=== PATIENT | female | born 1925 | race Caucasian/White ===

== ENCOUNTER 2016-10-03 14:44 | Inpatient (IN) | payer OTHER, MEDICARE ==
--- NOTE | 2016-10-03 14:48 | EDPHY ---
HPI/HX/ROS/PE/MDM Narrative: CHIEF COMPLAINT: Dyspnea HPI: The patient is an 89 y/o female arriving via EMS complaining of shortness of breath for the last few hours. She began feeling poorly yesterday with heavy , mildly productive cough. She was evaluated at urgent care yesterday afternoon for the same symptoms and was discharged with azithromycin. She feels worse today and has difficulty breathing even on 4LPM O2 at home. EMS reports she was hypoxemic at 81% on 4LPM O2, but improved to normal saturation after administration of a duo nebulizer treatment on 8LPM O2. She denies chest pain, fever, abdominal pain, vomiting, or diarrhea. She reports she requires home O2 due to PEs 10 years ago. REVIEW OF SYSTEMS: Aside from elements discussed in the HPI, a comprehensive 10-point review of systems was reviewed and is negative. PMH: PE 10 years ago requiring home O2 at 4LPM - aspirin, "hole in heart" SOCIAL HISTORY: Lives in private residence. DNR. Retired. PHYSICAL EXAM: General:Patient is alert, in no acute distress. ENT:Eyes are normal to inspection. ENT inspection normal. Neck: Normal inspection. Full range of motion. Respiratory:No respiratory distress. Inspiratory and expiratory wheezes with diffuse rhonchi. Cardiovascular: Regular rate and rhythm. Strong peripheral pulses. Normal cap refill. Abdomen:The abdomen is nontender to palpation. There are no peritoneal signs. Back: Normal to inspection. No tenderness to palpation. Skin: Normal color. No rash. Warm and dry. Extremities: Full range of motion. 2+ pedal edema, slightly worse on left. Neuro: Oriented x3. Normal motor function. Normal sensory function. ED Course: IV established by EMS. Labs drawn including CBC, CHEM, d-dimer, troponin, BNP. Chest x-ray ordered. I viewed the images myself on the PACS system. Chest x-ray shows bronchitis and COPD with stable cardiomegaly per Dr. Hodge, radiologist. D-dimer elevated at 1.52, mildly elevated troponin and BNP. Due to elevated creatinine at 2.0, patient cannot have a CTA of her chest to evaluate for PE. 1557: Spoke with hospitalist service. Dr. Rivera accepts admission for hypoxemia, dyspnea, elevated troponin, elevated d-dimer, elevated BNP. MDM: This is a complex medical patient presents with numerous potential etiologies for her dyspnea and hypoxia, including but not limited to pulmonary embolus, CHF exacerbation, COPD exacerbation, pneumonia. Her creatinine is elevated, making CT angio contraindicated at this time. Her chest x-ray looks more significant for volume overload and this is confirmed by elevated BNP and troponin. He the patient is afebrile so I do not think that antibiotics are indicated, particularly since the patient is already on azithromycin. Patient requires admission the hospital for observation and further workup. - Data Points Imaging Results: Imaging Impressions Chest X-Ray 10/03/16 14:58 Impression: 1. Probable mild bronchitis/COPD. 2. Stable cardiomegaly. 3. Additional findings as above. I viewed the images myself on the PACS system. Laboratory Results: Laboratory Results 10/03/16 15:03 10/03/16 15:03 10/03/16 10/03/16 10/03/16 15:03 15:03 15:03 WBC 9.07 10^3/uL 10^3/uL (3.80-9.50) RBC 3.50 10^6/uL L 10^6/uL (4.18-5.33) Hgb 11.2 g/dL L g/dL (12.6-16.3) Hct 37.3 % L % (38.0-47.0) MCV 106.6 fL H fL (81.5-99.8) MCH 32.0 pg pg (27.9-34.1) MCHC 30.0 g/dL L g/dL (32.4-36.7) RDW 16.3 % H % (11.5-15.2) Plt Count 231 10^3/uL 10^3/uL (150-400) MPV 9.9 fL fL (8.7-11.7) Neut % (Auto) Not Reported Lymph % (Auto) Not Reported [place] % (Auto) Not Reported Eos % (Auto) Not Reported Baso % (Auto) Not Reported Nucleat RBC Rel Count 0.4 % H % (0.0-0.2) Absolute Neuts (auto) Not Reported Absolute Lymphs (auto) Not Reported Absolute Monos (auto) Not Reported Absolute Eos (auto) Not Reported Absolute Basos (auto) Not Reported Absolute Nucleated RBC 0.04 10^3/uL H 10^3/uL (0-0.01) Immature Gran % Not Reported Seg Neutrophils % 82 % % Band Neutrophils % 4 % % Lymphocytes % 9 % % Monocytes % 4 % % Basophils % 1 % % Immature Gran # Not Reported Absolute Seg Neuts 7.44 10^/uL H 10^/uL (1.70-6.50) Absolute Band Neuts 0.36 10^3/uL 10^3/uL (0.00-0.70) Absolute Lymphocytes 0.82 10^3/uL L 10^3/uL (1.00-3.00) Absolute Monocytes 0.36 10^3/uL 10^3/uL (0.30-0.80) Absolute Basophils 0.09 10^3/uL 10^3/uL (0.02-0.10) Platelet Estimate ADEQUATE (ADEQ) Hypochromasia 3+ H Microcytic Cells 1+ H PT 12.2 SEC SEC (12.0-15.0) INR 0.91 (0.83-1.16) D-Dimer 1.52 ug/mLFEU H ug/mLFEU (0.00-0.50) Sodium 141 mEq/L mEq/L (134-144) Potassium 6.0 mEq/L H mEq/L (3.5-5.2) Chloride 105 mEq/L mEq/L (97-110) Carbon Dioxide 26 mEq/l mEq/l (22-31) Anion Gap 10 mEq/L mEq/L (8-16) BUN 32 mg/dL H mg/dL (7-23) Creatinine 2.0 mg/dL H mg/dL (0.6-1.0) Estimated GFR 23 Glucose 142 mg/dL H mg/dL (70-100) Calcium 8.6 mg/dL mg/dL (8.5-10.4) Troponin I 0.051 ng/mL H ng/mL (0-0.034) NT-Pro-B Natriuret Pep 5480 pg/mL H pg/mL (0-450) Specimen Hemolysis 132 General Initial Vital Signs: Initial Vital Signs Temperature (C) 37.1 C 10/03/16 14:58 Heart Rate 82 10/03/16 14:58 Respiratory Rate 24 H 10/03/16 14:58 Blood Pressure 188/86 H 10/03/16 14:58 O2 Sat (%) 56 L 10/03/16 14:58 O2 Delivery Mode Nasal Cannula O2 (L/minute) 6 Allergies/Adverse Reactions: MANAN Inhibitors [Manan Inhibitors] Allergy (Intermediate, Verified 12/13/14 12:16) Unknown nitrofurantoin [From Macrobid] Allergy (Unknown, Verified 12/13/14 12:16) Hives nitrofurantoin macrocrystalline [From Macrobid] Allergy (Unknown, Verified 12/13 12:16) Hives Sulfa (Sulfonamide Antibiotics) Allergy (Unknown, Verified 12/13/14 12:16) Hives allopurinol [Allopurinol] Allergy (Verified 12/13/14 12:16) Unknown amoxicillin [Amoxicillin] Allergy (Verified 12/13/14 12:16) Hives clindamycin [Clindamycin] Allergy (Verified 12/13/14 12:16) Unknown cortisone [Cortisone] Allergy (Verified 12/13/14 12:16) INCREASED TEMP iodine [Iodine] Allergy (Verified 12/13/14 12:16) Unknown Home Medications: Medication Instructions Recorded Aspirin [Aspirin 81mg (OTC)] 81 mg PO HS 08/18/12 Verapamil ER [Calan SR/ER 240MG 240 mg PO DAILY 08/18/12 (RX)] Azithromycin 250 mg PO DAILY 10/03/16 Ferrous Sulfate [Feosol] 325 mg PO DAILY 10/03/16 Guaifenesin/Codeine Phos [Codeine 5 - 20 ml PO Q6 PRN 10/03/16 10 mg-Guai 300 mg Liq] Herbals/Supplements -Info Only 1 ea PO DAILY 10/03/16 Probenecid [Probenecid 500mg (*)] 500 mg PO DAILY 10/03/16 Solifenacin Succinate [Vesicare] 10 mg PO HS 10/03/16 Departure - Departure Disposition: [facility] Acute Clinical Impression: Elevated troponin, Elevated d-dimer, Hypoxemia, Elevated brain natriuretic peptide (BNP) level Dyspnea Qualifiers: Dyspnea type: shortness of breath Qualified Code(s): R06.02 - Shortness of breath Condition: Fair Report Scribed for: Hector Gallegos Report Scribed by: Samantha Ramirez Date of Report: 10/03/16 Time of Report: 14:48 Physician Review and Approval Statement: Portions of this note were transcribed by an ED scribe. I personally performed the history, physical exam, and medical decision making; and confirm the accuracy of the information in the transcribed note.
[2016-10-03 15:13] LABS: ABSOLUTE NRBC COUNT 0.04 10^3/uL (0-0.01); ADD MORPH? NO; ATYPICAL LYMPHOCYTE FLAG 40 (0-99); FRAGMENT RBC FLAG 10 (0-99); HEMATOCRIT 37.3 % (38.0-47.0); HEMOGLOBIN 11.2 g/dL (12.6-16.3); LEFT SHIFT FLG 0 (0-99); LIPEMIA HEMOLYSIS FLAG 80 (0-99); MEAN CELL VOLUME 106.6 fL (81.5-99.8); MEAN PLATELET VOLUME 9.9 fL (8.7-11.7); NRBC-AUTO% 0.4 % (0.0-0.2); PLATELET CLUMPS FLAG 10 (0-99); PLATELET COUNT 231 10^3/uL (150-400); RED CELL DISTRIBUTION WIDTH 16.3 % (11.5-15.2)
[2016-10-03 15:15] LABS: ADD DIFF? YES; ADD SCAN? NO
[2016-10-03 15:24] LABS: INR 0.91 (0.83-1.16); PROTIME(PATIENT) 12.2 SEC (12.0-15.0)
[2016-10-03 15:37] LABS: ANION GAP 10 mEq/L (8-16); CALCIUM 8.6 mg/dL (8.5-10.4); CARBON DIOXIDE 26 mEq/l (22-31); CHLORIDE 105 mEq/L (97-110); GLOMERULAR FILTRATION RATE 23; GLUCOSE 142 mg/dL (70-100); SODIUM 141 mEq/L (134-144); SPECIMEN HEMOLYSIS 132
[2016-10-03 15:39] LABS: HYPOCHROMIA 3+; MICROCYTES 1+; PLATELET ESTIMATE ADEQUATE (ADEQ)
[2016-10-03 15:49] LABS: TROPONIN I 0.051 ng/mL (0-0.034)
[2016-10-03] MEDS ORDERED: ACETAMINOPHEN 325 MG TAB PO PRN (16:15)
[2016-10-03] MEDS ORDERED: ONDANSETRON 4 MG/2 ML VIAL IVP PRN (16:15)
[2016-10-03] MEDS ORDERED: ONDANSETRON DISINTEGRATING 4 MG TAB PO PRN (16:15)
[2016-10-03] MEDS ORDERED: PROMETHAZINE HCL 25 MG TAB PO PRN (16:15)
[2016-10-03] MEDS ORDERED: oxyCODONE IR 5 MG TAB PO PRN (16:15)
[2016-10-03] MEDS ORDERED: ALBUTEROL 3 ML DEYVIAL IH PRN (16:15)
[2016-10-03] MEDS ORDERED: hydrALAZINE 20 MG/ML VIAL IVP PRN (16:18)
[2016-10-03] MEDS ORDERED: SODIUM POLY SULF 15 GM/60 ML BOTTLE PO ONE (16:18)
[2016-10-03] MEDS ORDERED: FUROSEMIDE 20 MG/2 ML VIAL IVP ONE ×2 (16:53→20:30)
[2016-10-03] MEDS ORDERED: GUAIFENESIN PO PRN (17:49)
[2016-10-03] MEDS ORDERED: CODEINE PO PRN (17:49)
--- NOTE | 2016-10-03 19:04 | GHP ---
[f rep st] HISTORY AND PHYSICAL DATE OF ADMISSION: 10/03/2016 CHIEF COMPLAINT: Shortness of breath. HISTORY OF PRESENT ILLNESS: This is an 89-year-old female who has a past medical history that inclu flor chronic hypoxic respiratory failure on 4 L of oxygen at baseline in the setting of presumed COPD as well as prior PE and diastolic heart failure presenting with several days worth of wheeze and wo rsening shortness of breath. The patient was ultimately brought in by paramedics and was found to b e 81% on her usual 4 L of oxygen. She denies any fevers or chills. She denies any chest pain. She chronically has swelling in her legs and feels that this is at baseline without any change and no p ain in her legs bilaterally. She has a chronic cough but is not really getting up much sputum. She was seen at urgent care yesterday and started on a Z-Shaw as well as some nebulizers, but notes that she did not feel any better and for that reason, came to the ER today for further evaluation. PAST MEDICAL HISTORY: 1. Chronic hypoxic respiratory failure on 4 L of oxygen at baseline. 2. COPD. 3. History of PE, no longer on anticoagulation. 4. Pulmonary hypertension with suspected LILIANA/OHS. 5. Morbid obesity. 6. Diastolic heart failure with preserved ejection fraction. 7. Gout. 8. Chronic kidney disease with a baseline creatinine of around 2. FAMILY HISTORY: This was reviewed. Noncontributory. Parents are . SOCIAL HISTORY: The patient is and accompanied here by her . She is currently livin g independently. She is a nonsmoker and never did smoke. She denies alcohol or drug use. She has 2 children one of whom accompanies her here today. REVIEW OF SYSTEMS: 10-point review of systems obtained negative except as per HPI. MEDICATIONS: Include. 1. Verapamil. 2. VESIcare. 3. Probenecid. 4. Guaifenesin/codeine. 5. Iron supplement. 6. Azithromycin. 7. Aspirin. ALLERGIES: Are multiple and include JEWELS inhibitors, nitrofurantoin, sulfa, clindamycin. PHYSICAL EXAM: VITAL SIGNS: BP 172/79, heart rate 89, respiratory rate 16, O2 sats 93% on 6 L. Te mperature is 37.1. GENERAL APPEARANCE: This is an elderly female. She is awake, alert a nd in mild distress. HEENT: Eyes anicteric, sclerae are injected. Oropharynx is clear, mucous mem branes are moist. LUNGS: There is increased work of breathing and accessory muscle use appreciated, there are diffuse wheezes present throughout all lung augustin. CARDIOVASCULAR: Regular rate and rhy thm, difficult to appreciate whether not there is a murmur over her wheeze though I suspect a systol ic murmur is present especially at the right upper sternal border. ABDOMEN: Obese, soft, nontender . EXTREMITIES: 1 to 2+ pitting edema bilateral lower extremities. The calves are symmetrical and there is no muscular tenderness present. SKIN: Warm, dry, well perfused. NEURO/PSYCH: Oriented, a ppropriate, pleasant. LABORATORY DATA: Labs reviewed. Significant for white blood cell count of 9.07, hematocrit 37.3, M CV is 106.6. D-dimer is elevated at 1.5. Potassium is 6.0. BUN of 32 with a creatinine at 2.0, gl ucose of 142, proBNP of 5480, troponin 0.051. Chest x-ray: This was personally reviewed and interpreted, shows no clear evidence of pneumonia. T here is evidence of underlying bronchitis/COPD and stable cardiomegaly. ASSESSMENT AND PLAN: This is an 89-year-old female with past medical history of chronic hypoxic res piratory failure secondary to chronic obstructive pulmonary disease, diastolic heart failure and bo or PE presenting with acute on chronic hypoxic respiratory failure. 1. Acute on chronic hypoxic respiratory failure. Suspect this is largely secondary to chronic obst ructive pulmonary disease exacerbation given exam with diffuse wheezes and reduced air movement. An other consideration would be for pulmonary embolus especially given prior history of pulmonary embol us and elevated D-dimer, but at this time, given her chronic kidney disease, I feel that a CT angiog lizette is too high risk and will defer that for the time being. She does have evidence of likely decom pensated diastolic heart failure also contributing. 2. Chronic obstructive pulmonary disease with acute exacerbation. As per above, she does have diff use wheeze and reduced air movement throughout her lungs consistent with chronic obstructive pulmona ry disease exacerbation, possible underlying bronchopneumonia triggering this acute exacerbation. S he was not improving on azithromycin at home. Will transition to Levaquin given lack of clear typic al pneumonia appearance on exam. We will check an influenza test. Will provide scheduled DuoNeb an d p.r.n. albuterol, Mucomyst and IV steroids. 3. Acute diastolic heart failure. Patient with significant bilateral lower extremity edema and BNP elevated higher than it has been in the past. We will give 1 dose of IV Lasix, monitor inputs and nose and daily weights. Given her chronic kidney disease, I will not schedule Lasix at this point, but will reorder so long as her response is reasonable. We will also obtain an echocardiogram in e morning for evaluation for any change. 4. Hyperkalemia with underlying chronic kidney disease as likely etiology. Will obtain EKG to rule out any changes related to her elevated potassium and plan to give Kayexalate so long as her EKG is unremarkable. 5. Elevated troponin in the absence of chest pain and with acute respiratory issues as per above. We will monitor on telemetry. Will trend troponins. Again, echocardiogram for the morning. 6. History of pulmonary embolus, no longer on anticoagulation. Cannot obtain CT angiogram given he r chronic kidney disease, but will ask for ultrasound of bilateral extremities and echocardiogram in the morning. She has had V/Q scans in the past, which have been indeterminate and suspect that thi s would be low yield to repeat. 7. Pulmonary hypertension. This is with underlying obstructive sleep apnea for which she is on CPA P and suspected obesity hypoventilation syndrome given body habitus. We will continue CPAP, will co ntinue supplemental oxygen. Will repeat echocardiogram as per above. 8. Code status. This was reviewed with the patient and her family. She would like to be a DNR. 9. Disposition. Inpatient status. Expect she will need greater than 48 hours stay for evaluation and management of above. 10. Patient is new to my care. Old records reviewed, summarized as per HPI and past medical histor y. Care plan reviewed with ER physician, including plans for breathing treatments. Further history obtained from patient's family present at bedside. /[id number]/MODL
[2016-10-03] MEDS: ACETYLCYSTEINE 10% 30 ML VIAL IH SCH (19:25)
[2016-10-03] MEDS: IPRATROPIUM/ALBUTEROL 3 ML DEYVIAL IH SCH (19:26)
[2016-10-03] MEDS: methylPREDNISolone SOD SUCC 125 MG/2 ML VIAL IVP SCH ×2 (19:31→23:27)
[2016-10-03] MEDS ORDERED: NON-FORMULARY NEW DRUG (Solifenacin Succinate [Vesicare] 10 MG) PO SCH (21:00)
--- NOTE | 2016-10-03 21:37 | CPEKG ---
Heart Rate: 82 RR Interval: 732 P-R Interval: 184 QRSD Interval: 102 QT Interval: 396 QTC Interval: 463 P [place]: 79 QRS [place]: 75 T Wave [place]: 57 EKG Severity - ABNORMAL ECG - EKG Impression: SINUS RHYTHM EKG Impression: LATERAL INFARCT, AGE INDETERMINATE Electronically Signed By: Shawna Soria 03-Oct-2016 22:08:37
[2016-10-03 21:39] LABS: BASE EXCESS -3.8 mEq/L (-2.5-2.5); BICARBONATE 25 mEq/L (22-26); MEASURED OXYGEN SATURATION 95 % (92-95); PO2 90 mmHg (65-75); TCO2 28 mEq/L (23-27)
[2016-10-03 21:44] LABS: PCO2 73 mmHg (34-38)
[2016-10-03] MEDS: ASPIRIN 81 MG CHEWABLE TAB PO SCH (21:53)
[2016-10-03] MEDS: SOLIFENACIN SUCCINATE 5 MG TAB PO SCH (21:54)
[2016-10-03] MEDS ORDERED: HEPARIN 5,000 UNIT/0.5 ML SYR SC SCH (22:00)
--- NOTE | 2016-10-03 22:00 | SOAPPROG ---
SOAP Progress Note Assessment/Plan: F/u: called by nursing to come evaluate patient with worsening respiratory status--now on 10L face mask, increased wob. ABG drawn with PCO2 > 70, pH 7.17, and patient in moderate distress. Has had lasix, nebs, steroids. Trop increased as well, ECG personally reviewed and shows e/o old lateral infarct but no acute findings. Discussed with patient and her , given worsening respiratory status and CO2 level, will get repeat cxr, transfer to step down for bipap. Patient is DNR, and was clear that she would not want intubation. >45 minutes in critical care time spent with this Objective: Vital Signs Temp Pulse Resp BP Pulse Ox 37.3 C 84 25 H 175/72 H 92 10/03/16 20:20 10/03/16 21:27 10/03/16 20:20 10/03/16 20:20 10/03/16 21:28 10/02/16 10/03/16 10/04/16 05:59 05:59 05:59 Output Total 100 Balance -100 PT 12.2 SEC (12.0-15.0) 10/03/16 15:03 INR 0.91 (0.83-1.16) 10/03/16 15:03 ICD10 Worksheet Patient Problems: Problems Problem Status Onset Chronic obstructive lung disease Active Dyspnea Acute Elevated troponin Acute Elevated d-dimer Acute Hypoxemia Acute Elevated brain natriuretic peptide (BNP) level Acute
[2016-10-03] MEDS ORDERED: HEPARIN 10,000 UNIT/10 ML MDV IVP ONE (22:09)
[2016-10-03] MEDS ORDERED: HEPARIN 10,000 UNIT/10 ML MDV IVP PRN (22:09)
[2016-10-03] MEDS ORDERED: HEPARIN/DEXTROSE 500 ML IV SCH (22:30)
[2016-10-03 23:33] LABS: INR 0.96 (0.83-1.16); PROTIME(PATIENT) 12.7 SEC (12.0-15.0)
[2016-10-03 23:34] LABS: APTT 29.3 SEC (23.0-38.0)
[2016-10-03 23:35] LABS: ABSOLUTE IMMATURE GRANULOCYTES 0.18 10^3/uL (0.00-0.10); ABSOLUTE NRBC COUNT 0.04 10^3/uL (0-0.01); ADD DIFF? NO; ADD MORPH? NO; ADD SCAN? NO; ATYPICAL LYMPHOCYTE FLAG 30 (0-99); FRAGMENT RBC FLAG 10 (0-99); HEMATOCRIT 34.9 % (38.0-47.0); HEMOGLOBIN 10.4 g/dL (12.6-16.3); LEFT SHIFT FLG 10 (0-99); LIPEMIA HEMOLYSIS FLAG 70 (0-99); MEAN CELL HEMOGLOBIN CONCENTR. 29.8 g/dL (32.4-36.7); MEAN CELL VOLUME 107.4 fL (81.5-99.8); MEAN PLATELET VOLUME 10.3 fL (8.7-11.7); NRBC-AUTO% 0.4 % (0.0-0.2); PLATELET CLUMPS FLAG 20 (0-99); PLATELET COUNT 225 10^3/uL (150-400); RED BLOOD CELL COUNT 3.25 10^6/uL (4.18-5.33); RED CELL DISTRIBUTION WIDTH 16.4 % (11.5-15.2)
[2016-10-04] MEDS: ACETYLCYSTEINE 10% 30 ML VIAL IH SCH ×5 (00:39→23:15)
[2016-10-04] MEDS: IPRATROPIUM/ALBUTEROL 3 ML DEYVIAL IH SCH ×4 (05:08→19:59)
[2016-10-04 05:14] LABS: BASE EXCESS -3.3 mEq/L (-2.5-2.5); BICARBONATE 25 mEq/L (22-26); MEASURED OXYGEN SATURATION 96 % (92-95); PCO2 69 mmHg (34-38); PO2 83 mmHg (65-75); TCO2 28 mEq/L (23-27)
[2016-10-04] MEDS: methylPREDNISolone SOD SUCC 125 MG/2 ML VIAL IVP SCH ×3 (05:14→18:09)
[2016-10-04 05:26] LABS: % IMMATURE GRANULYOCYTES 2.3 % (0.0-1.1); ABSOLUTE IMMATURE GRANULOCYTES 0.18 10^3/uL (0.00-0.10); ABSOLUTE NRBC COUNT 0.05 10^3/uL (0-0.01); ADD DIFF? NO; ADD MORPH? NO; ADD SCAN? NO; ATYPICAL LYMPHOCYTE FLAG 50 (0-99); FRAGMENT RBC FLAG 0 (0-99); HEMATOCRIT 35.2 % (38.0-47.0); HEMOGLOBIN 10.4 g/dL (12.6-16.3); LEFT SHIFT FLG 10 (0-99); LIPEMIA HEMOLYSIS FLAG 70 (0-99); MEAN CELL HEMOGLOBIN CONCENTR. 29.5 g/dL (32.4-36.7); MEAN CELL VOLUME 108.3 fL (81.5-99.8); MEAN PLATELET VOLUME 10.2 fL (8.7-11.7); NRBC-AUTO% 0.6 % (0.0-0.2); PLATELET CLUMPS FLAG 0 (0-99); PLATELET COUNT 209 10^3/uL (150-400); RED BLOOD CELL COUNT 3.25 10^6/uL (4.18-5.33); RED CELL DISTRIBUTION WIDTH 16.5 % (11.5-15.2)
[2016-10-04 05:55] LABS: ANION GAP 12 mEq/L (8-16); CALCIUM 8.1 mg/dL (8.5-10.4); CARBON DIOXIDE 27 mEq/l (22-31); CHLORIDE 104 mEq/L (97-110); GLOMERULAR FILTRATION RATE 23; GLUCOSE 140 mg/dL (70-100); MAGNESIUM 2.1 mg/dL (1.6-2.3); POTASSIUM 5.1 mEq/L (3.5-5.2); SODIUM 143 mEq/L (134-144)
[2016-10-04] MEDS: PROBENECID 500 MG TAB PO SCH (09:52)
[2016-10-04] MEDS: FERROUS SULFATE 325 MG TAB PO SCH (09:52)
[2016-10-04] MEDS: VERAPAMIL ER 240 MG TAB PO SCH (09:52)
--- NOTE | 2016-10-04 10:16 | GCON ---
[f rep st] CONSULTATION [employer]LEMENTATION MANAGER CONSULTATION REASON FOR ADMISSION: Shortness of breath. HISTORY OF PRESENT ILLNESS: The patient is a very pleasant 89-year-old white female with extensive past medical history including chronic obstructive pulmonary disease, pulmonary hypertension with pr obable obstructive sleep apnea, diastolic heart failure, chronic renal insufficiency, gout, morbid o besity, distant history of pulmonary embolism 10 years ago, and chronic respiratory failure, for i ch she is on home oxygen. She presented to the emergency room via EMS after suffering increasing br eathlessness. She was found to have oxygen saturation 91% despite being on 4 L. She was brought to the emergency room and subsequently admitted to the intensive care unit. There was no chest pain, pleuritic-type chest pain or angina equivalent. No fever or night sweats. No production of sputum, but she did admit to a chronic cough. PAST MEDICAL HISTORY: As above. ALLERGIES: Include JEWELS inhibitors, nitrofurantoin, sulfa and clindamycin. MEDICATIONS: Medications at home include aspirin, azithromycin, iron, guaifenesin, probenecid, VESI care and verapamil. SOCIAL HISTORY: Lifelong never smoker. No significant alcohol use. She is and has [employer] family support. PHYSICAL EXAMINATION: VITAL SIGNS: Blood pressure is 147/78, pulse 83, respirations 26, temperatur e is 36.4, oxygen saturation 99% on 10 L OxyMask. GENERAL: She is a morbidly obese but extremely p leasant elderly white female who is resting comfortably on supplemental oxygen. HEENT: Eyes are PE RRLA, EOMI. Throat exam is deferred. NECK: Supple. No cervical adenopathy. HEART: Sounds are d istant, but regular rate and rhythm. LUNGS: Diminished breath sounds. Mild prolongation of expira tory phase. There is some wheeze at the bases. ABDOMEN: Soft, nontender. Bowel sounds are presen t in all 4 quadrants. EXTREMITIES: 3+ lower extremity edema. LABORATORIES: White count is 7.9, hemoglobin 10, hematocrit 35, platelet count is 209, MCV is eleva tevin at 108. INR is 0.96. Arterial blood gas with pH 7.19, pCO2 of 69, pO2 of 83, bicarb 28, oxygen saturation 96%. Sodium is 143, potassium 5.1, chloride 104, CO2 is 27, BUN is 31, creatinine 2.0, glucose is 140. BNP is elevated at 5480. Influenza A and B are negative. Chest x-ray shows cardio megaly, but no evidence of infiltrates. Ultrasound of the lower extremities shows no evidence of DV T. IMPRESSION: 1. Hypercarbic respiratory failure. Likely secondary to her obstructive lung disease. Unlikely to be chronic obstructive pulmonary disease, however, given her nonsmoking. 2. Obstructive lung disease. Likely asthma. 3. Morbid obesity. 4. Pulmonary hypertension. 5. Probable obstructive sleep apnea and obesity hypoventilation syndrome. 6. Acute on chronic renal insufficiency. 7. Diastolic heart failure. 8. Chronic respiratory failure, on oxygen. RECOMMENDATIONS: 1. Frequent nebulizer with both albuterol and Atrovent. 2. IV steroids using Solu-Medrol. 3. Aggressive pulmonary toilet. 4. No reason to think this is pulmonary embolus. We will discontinue heparin at this time. She morgan s a negative lower extremity Doppler. 5. PT and OT. 6. Out of bed to chair. Thank you very much. /[id number]/MINOOL
[2016-10-04 10:42] LABS: BASE EXCESS -4.6 mEq/L (-2.5-2.5); BICARBONATE 25 mEq/L (22-26); MEASURED OXYGEN SATURATION 93 % (92-95); TCO2 27 mEq/L (23-27)
[2016-10-04] MEDS ORDERED: MAGNESIUM HYDROXIDE 30 ML UDCUP PO PRN (10:43)
[2016-10-04] MEDS ORDERED: LACTULOSE 20 GM/30 ML UDCUP PO PRN (10:43)
[2016-10-04] MEDS ORDERED: BISACODYL 10 MG SUPP PR PRN (10:43)
[2016-10-04 10:45] LABS: PCO2 69 mmHg (34-38); PO2 72 mmHg (65-75)
[2016-10-04 10:52] LABS: O2 CONCENTRATIION 6 % (0-100); P/F RATIO 1200 RATIO
[2016-10-04] MEDS: SENNOSIDES/DOCUSATE SODIUM TAB PO SCH ×2 (11:29→21:49)
[2016-10-04] MEDS: POLYETHYLENE GLYCOL 3350 17 GM PKT PO PRN (11:30)
--- NOTE | 2016-10-04 13:26 | HOSPPROG ---
Hospitalist Progress Note Assessment/Plan: * acute on chronic hypoxic and hypercarbic respiratory failure * reactive airway exacerbation most likely * on steroids and antibiotics, nebulizers * heparin drip discontinued * BiPAP as needed * COPD versus asthma * history of PE * start dvt prophylaxis dosin heparin * pulmonary hypertension * morbid obesity * history of diastolic heart failure * repeat echo pending * chronic kidney disease Subjective: feels a little bit better. Less short of breath no chest pain. Says she has been wheezing over the last week Objective: Vital Signs Temp Pulse Resp BP Pulse Ox 36.7 C 80 20 161/67 H 98 10/04/16 11:42 10/04/16 11:47 10/04/16 11:47 10/04/16 11:42 10/04/16 11:47 Laboratory Results 10/04/16 04:45 10/04/16 04:45 10/03/16 10/04/16 10/05/16 05:59 05:59 05:59 Intake Total 439 Output Total 100 250 Balance 339 -250 PT 12.7 SEC (12.0-15.0) 10/03/16 23:15 INR 0.96 (0.83-1.16) 10/03/16 23:15 discussed with pulmonology - Physical Exam Constitutional: no apparent distress, appears nourished, not in pain Eyes: anicteric sclera, EOMI Ears, Nose, Mouth, Throat: moist mucous membranes, hearing normal, ears appear normal Cardiovascular: regular rate and rhythym, no murmur, rub, or gallop, edema ( left greater than right edema) Respiratory: respiratory distress ( [id number]), other ( marked decreased breath sounds slight wheezing) Gastrointestinal: normoactive bowel sounds, soft, non-tender abdomen, no palpable masses Skin: warm Neurologic: AAOx3 Psychiatric: interacting appropriately, not anxious, not encephalopathic, thought process linear ICD10 Worksheet Patient Problems: Problems Problem Status Onset Dyspnea Acute Elevated brain natriuretic peptide (BNP) level Acute Elevated d-dimer Acute Elevated troponin Acute Hypoxemia Acute Chronic obstructive lung disease Active
--- NOTE | 2016-10-04 13:51 | ECHO ---
[id number] + + [address] : : [place] [address] : : [phone] + + Adult Echocardiographic Report + -----+ :Name: JAVIER OQUENDO MStudy Date: 10/04/2016 10:56 AM : : Hospital Admission Number: [id number] Location : 244: :: 1925 Gender: Female Height: 64 in : :Age: 89 yrs Race: WH Weight: 190 lb : :Reason For Study: Elevated BNP,hypoxic : : BSA: 1.9 meters2 : :History: Diastolic heart failure : + -----+ MMode/2D Measurements \T\ Calculations IVSd: 0.94 cm LVIDd: 5.1 cm FS: 25.7 % Ao root diam: LVPWd: 1.1 cm LVIDs: 3.8 cm EDV(Teich): 3.5 cm 122.1 ml LA dimension: ESV(Teich): 60.6 ml4.4 cm EF(Teich): 50.4 % LVOT diam: 1.9 cmLVLd ap4: 8.5 cm SV(MOD-sp4): LVOT area: EDV(MOD-sp4): 71.0 ml 3.0 cm2 116.0 ml LVLs ap4: 7.4 cm ESV(MOD-sp4): 45.0 ml EF(MOD-sp4): 61.2 % Normal Measurement Values: + + :LVIDd (3.5-5.7cm) IVSd (0.6-1.1cm) LVPWd (0.6-1.1cm) Aortic Root (2.0-3.7cm)Left Atrium (1.5-4.0cm): :LV Vol(d) (76-115ml) LV Vol(s) (29-48ml) Ejec Fraction (50-65%)PV Swapnil (0.6- 1.2m/s) TV Swapnil (0.4-1.0m/s) : :MV E Swapnil (0.8-1.0m/s)MV A Swapnil (0.3-1.0m/s)LVOT Swapnil (0.7-1.2m/s) Asc Ao Swapnil ( 0.9-1.8m/s) : + + Doppler Measurements \T\ Calculations MV E max swapnil: 123.9 cm/sec Ao mean P.7 mmHg MV A max swapnil: 147.6 cm/sec Ao V2 mean: 189.0 cm/sec MV E/A: 0.84 Ao V2 VTI: 61.2 cm Left Ventricle The left ventricle is normal in size. There is normal left ventricular wall thickness. Left ventricular systolic function is normal. Ejection Fraction = 60-65%. There is Doppler evidence for diastolic dysfunction. No regional wall motion abnormalities noted. Right Ventricle The right ventricle is normal in size and function. Atria The left atrium is mildly dilated. Right atrial size is normal. The interatrial septum is intact with no evidence for an atrial septal defect. Mitral Valve There is mild mitral annular calcification. There is no evidence of mitral valve prolapse. There is no mitral valve stenosis. There is mild mitral regurgitation. Tricuspid Valve Normal tricuspid valve. There is mild tricuspid regurgitation. Aortic Valve The aortic valve is trileaflet. AV moderate calcification. RCC of the aortic valve appears fixed. Mild valvular aortic stenosis. AV max PG is 28mmHG. AV mean PG is 14mmHG. There is no aortic insufficiency. Pulmonic Valve The pulmonic valve is normal in structure and function. Mild pulmonic valvular regurgitation. Great Vessels The aortic root is normal size. Pericardium/Pleural There is no pericardial effusion. Conclusion A complete two-dimensional transthoracic echocardiogram was performed (2D, M-mode, Doppler and color flow Doppler). The patient has a dilated IVC. Left ventricular size and systolic function are normal. Ejection Fraction = 60-65%. There is Doppler evidence for diastolic dysfunction. The left atrium is mildly dilated. AV moderate calcification. RCC of the aortic valve appears fixed. Mild valvular aortic stenosis. AV max PG is 28mmHG. AV mean PG is 14mmHG. There is mild mitral annular calcification. There is mild mitral regurgitation. There is mild tricuspid regurgitation. Final Reading Physician: Fly Simpson signed on 10/04/2016 01:49 PM Ordering Physician: Mello Rivera Performed By: Danyelle Araiza RDCS
[2016-10-04] MEDS: HEPARIN 5,000 UNIT/0.5 ML SYR SC SCH ×2 (14:23→21:49)
[2016-10-04] MEDS ORDERED: SENNOSIDES/DOCUSATE SODIUM TAB PO SCH (21:00)
[2016-10-04] MEDS: ASPIRIN 81 MG CHEWABLE TAB PO SCH (21:48)
[2016-10-04] MEDS: SOLIFENACIN SUCCINATE 5 MG TAB PO SCH (21:48)
[2016-10-05] MEDS: methylPREDNISolone SOD SUCC 125 MG/2 ML VIAL IVP SCH ×3 (00:06→12:09)
[2016-10-05] MEDS: ACETYLCYSTEINE 10% 30 ML VIAL IH SCH ×4 (05:08→21:24)
[2016-10-05] MEDS: IPRATROPIUM/ALBUTEROL 3 ML DEYVIAL IH SCH ×4 (05:08→21:24)
[2016-10-05 05:32] LABS: ANION GAP 10 mEq/L (8-16); CALCIUM 7.8 mg/dL (8.5-10.4); CARBON DIOXIDE 28 mEq/l (22-31); CHLORIDE 103 mEq/L (97-110); GLOMERULAR FILTRATION RATE 23; GLUCOSE 122 mg/dL (70-100); POTASSIUM 4.6 mEq/L (3.5-5.2); SODIUM 141 mEq/L (134-144)
[2016-10-05] MEDS: HEPARIN 5,000 UNIT/0.5 ML SYR SC SCH ×3 (06:29→21:41)
[2016-10-05] MEDS: SENNOSIDES/DOCUSATE SODIUM TAB PO SCH ×2 (08:42→23:34)
[2016-10-05] MEDS: FERROUS SULFATE 325 MG TAB PO SCH (08:42)
[2016-10-05] MEDS: VERAPAMIL ER 240 MG TAB PO SCH (08:42)
[2016-10-05] MEDS: PROBENECID 500 MG TAB PO SCH (08:42)
[2016-10-05] MEDS: POLYETHYLENE GLYCOL 3350 17 GM PKT PO PRN (12:54)
--- NOTE | 2016-10-05 16:18 | HOSPPROG ---
Hospitalist Progress Note Assessment/Plan: * acute on chronic hypoxic and hypercarbic respiratory failure * reactive airway exacerbation most likely * switch to oral steroids * heparin drip discontinued * BiPAP as needed * COPD versus asthma * history of PE * start dvt prophylaxis dosin heparin * pulmonary hypertension * morbid obesity * history of diastolic heart failure * repeat echo pending * chronic kidney disease * probably home tomorrow Subjective: Feeling a lot better Objective: Vital Signs Temp Pulse Resp BP Pulse Ox 36.8 C 90 18 148/79 H 91 L 10/05/16 13:46 10/05/16 13:46 10/05/16 13:46 10/05/16 13:46 10/05/16 13:46 Laboratory Results 10/05/16 04:40 10/05/16 04:40 10/04/16 10/05/16 10/06/16 05:59 05:59 05:59 Intake Total 439 200 750 Output Total 100 475 Balance 339 -275 750 PT 12.7 SEC (12.0-15.0) 10/03/16 23:15 INR 0.96 (0.83-1.16) 10/03/16 23:15 - Physical Exam Constitutional: no apparent distress, appears nourished, not in pain Eyes: anicteric sclera, EOMI Ears, Nose, Mouth, Throat: moist mucous membranes, hearing normal Cardiovascular: regular rate and rhythym, no murmur, rub, or gallop Respiratory: no respiratory distress, other ( much better air movement last wheezing, scattered rhonchi) Gastrointestinal: normoactive bowel sounds, soft, non-tender abdomen, no palpable masses Skin: warm Neurologic: AAOx3 Psychiatric: interacting appropriately, not anxious, not encephalopathic, thought process linear ICD10 Worksheet Patient Problems: Problems Problem Status Onset Chronic Disease Mgmt/Transitional Care Acute Chronic Disease Mgmt/Transitional Care Acute Dyspnea Acute Elevated brain natriuretic peptide (BNP) level Acute Elevated d-dimer Acute Elevated troponin Acute Hypoxemia Acute Chronic obstructive lung disease Active
[2016-10-05] MEDS: ASPIRIN 81 MG CHEWABLE TAB PO SCH (21:41)
[2016-10-05] MEDS: SOLIFENACIN SUCCINATE 5 MG TAB PO SCH (21:41)
[2016-10-06] MEDS: guaiFENesin/CODEINE PHOS 10 ML UDCUP PO PRN ×3 (02:14→22:59)
[2016-10-06 05:32] LABS: ANION GAP 9 mEq/L (8-16); CALCIUM 7.9 mg/dL (8.5-10.4); CARBON DIOXIDE 28 mEq/l (22-31); CHLORIDE 104 mEq/L (97-110); GLOMERULAR FILTRATION RATE 23; GLUCOSE 92 mg/dL (70-100); POTASSIUM 5.1 mEq/L (3.5-5.2); SODIUM 141 mEq/L (134-144)
[2016-10-06] MEDS: IPRATROPIUM/ALBUTEROL 3 ML DEYVIAL IH SCH ×4 (06:13→22:09)
[2016-10-06] MEDS: ACETYLCYSTEINE 10% 30 ML VIAL IH SCH ×4 (06:13→22:09)
[2016-10-06] MEDS: HEPARIN 5,000 UNIT/0.5 ML SYR SC SCH ×3 (06:26→21:30)
[2016-10-06] MEDS: VERAPAMIL ER 240 MG TAB PO SCH (09:34)
[2016-10-06] MEDS: predniSONE 20 MG TAB PO SCH (09:35)
[2016-10-06] MEDS: PROBENECID 500 MG TAB PO SCH (09:35)
[2016-10-06] MEDS: FERROUS SULFATE 325 MG TAB PO SCH (09:35)
[2016-10-06] MEDS: SENNOSIDES/DOCUSATE SODIUM TAB PO SCH ×2 (09:36→21:32)
--- NOTE | 2016-10-06 16:16 | PDINTPN ---
Trust Operations Assistant Progress Note Assessment/Plan: Assessment/plan: 89 F with known LILIANA admittted 10/03 with SOB and hypoxemia. She had been seen as an outpatient shortly before admission and treated for bronchitis with azithromycin, but continued to deteriorate. She is a life-long non-smoker and had no prior history of asthma, but wheezes on exam led to treatment for obstructive lung disease. She was foiund to have hypercarbic respiratory failure and treated with bipap overnight in addition to nebs, steroids and Levaquin. * Acute on chronic respiratory failure with hypercapnea- the etiology is unclear to me- I dont think she has COPD or asthma, but she is clearly improving. Its possible that her new CPAP device is inadequately setup and her recent bronchitis exacerbated that situation. She will get a Trilogy tonight and we will check an ABG in the morning to assess its efficacy. Provera is another possibility for OHS, but I have hesitancy to use it given her history of PE. She can see me as an outpatient and I can review her previous sleep studies for clarification. Objective: Vital Signs Temp Pulse Resp BP Pulse Ox 37.1 C 84 18 169/74 H 99 10/06/16 08:00 10/06/16 11:36 10/06/16 11:36 10/06/16 09:34 10/06/16 11:36 Laboratory Results 10/05/16 04:40 10/06/16 05:09 10/05/16 10/06/16 10/07/16 05:59 05:59 05:59 Intake Total 200 1050 Output Total 475 250 Balance -275 800 PT 12.7 SEC (12.0-15.0) 10/03/16 23:15 INR 0.96 (0.83-1.16) 10/03/16 23:15 Physical Exam - Physical Exam General Appearance: WD/WN, alert, obese EENT: PERRL/EOMI Neck: supple Respiratory: lungs clear, normal breath sounds, No respiratory distress, No rales, No rhonchi Cardiac/Chest: normal peripheral pulses, regular rate, rhythm Abdomen: normal bowel sounds, non-tender, soft, No distended Skin: normal color, warm/dry Extremities: pedal edema Neuro/Psych: alert, normal mood/affect, oriented x 3 ICD10 Worksheet Patient Problems: Problems Problem Status Onset Chronic Disease Mgmt/Transitional Care Acute Chronic Disease Mgmt/Transitional Care Acute Dyspnea Acute Elevated brain natriuretic peptide (BNP) level Acute Elevated d-dimer Acute Elevated troponin Acute Hypoxemia Acute Chronic obstructive lung disease Active
--- NOTE | 2016-10-06 16:30 | HOSPPROG ---
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 Apparently will be trying a new BiPAP setup tonight Objective: Vital Signs Temp Pulse Resp BP Pulse Ox 36.9 C 80 18 159/75 H 92 10/06/16 16:00 10/06/16 16:00 10/06/16 16:00 10/06/16 16:00 10/06/16 16:00 Laboratory Results 10/05/16 04:40 10/06/16 05:09 10/05/16 10/06/16 10/07/16 05:59 05:59 05:59 Intake Total 200 1050 Output Total 475 250 Balance -275 800 PT 12.7 SEC (12.0-15.0) 10/03/16 23:15 INR 0.96 (0.83-1.16) 10/03/16 23:[address] Vasquez - Physical Exam Constitutional: no apparent distress, appears nourished, not in pain Eyes: anicteric sclera, EOMI Ears, Nose, Mouth, Throat: moist mucous membranes, hearing normal Cardiovascular: regular rate and rhythym, no murmur, rub, or gallop Respiratory: no respiratory distress, other ( pretty good air movement no wheezes) Skin: warm Neurologic: AAOx3 Psychiatric: interacting appropriately, not anxious, not encephalopathic, thought process linear ICD10 Worksheet Patient Problems: Problems Problem Status Onset Chronic Disease Mgmt/Transitional Care Acute Chronic Disease Mgmt/Transitional Care Acute Dyspnea Acute Elevated brain natriuretic peptide (BNP) level Acute Elevated d-dimer Acute Elevated troponin Acute Hypoxemia Acute Chronic obstructive lung disease Active
[2016-10-06] MEDS: ASPIRIN 81 MG CHEWABLE TAB PO SCH (21:29)
[2016-10-06] MEDS: SOLIFENACIN SUCCINATE 5 MG TAB PO SCH (21:30)
[2016-10-07] MEDS: IPRATROPIUM/ALBUTEROL 3 ML DEYVIAL IH SCH ×4 (05:43→22:43)
[2016-10-07] MEDS: ACETYLCYSTEINE 10% 30 ML VIAL IH SCH ×3 (05:43→17:31)
[2016-10-07] MEDS: HEPARIN 5,000 UNIT/0.5 ML SYR SC SCH ×3 (06:20→21:07)
[2016-10-07 09:00] LABS: BASE EXCESS 3.8 mEq/L (-2.5-2.5); BICARBONATE 30 mEq/L (22-26); MEASURED OXYGEN SATURATION 99 % (92-95); PCO2 60 mmHg (34-38); PO2 167 mmHg (65-75); TCO2 32 mEq/L (23-27)
[2016-10-07 09:03] LABS: BIPAP YES; EXP PRESSURE 4; INSP PRESSURE 10; OXYGEN BLEED 10
[2016-10-07] MEDS: VERAPAMIL ER 240 MG TAB PO SCH (09:43)
[2016-10-07] MEDS: FERROUS SULFATE 325 MG TAB PO SCH (09:43)
[2016-10-07] MEDS: PROBENECID 500 MG TAB PO SCH (09:43)
[2016-10-07] MEDS: predniSONE 20 MG TAB PO SCH (09:43)
[2016-10-07] MEDS: SENNOSIDES/DOCUSATE SODIUM TAB PO SCH ×2 (09:43→21:07)
--- NOTE | 2016-10-07 11:00 | HOSPPROG ---
Hospitalist Progress Note Assessment/Plan: 89 y/o female new to my care today. 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 failure (slow to improve ) with persistent wheezing * possible viral induced reactive airways * DC Levaquin * continue prednisone * obesity hypoventilation syndrome/obstructive sleep apnea new CPAP still has not been delivered * ABG was reviewed and personally interpreted by myself c/w chronic respiratory acidosis * ?COPD versus asthma * history of PE * heparin DVT prophylaxis * pulmonary hypertension * morbid obesity * history of diastolic heart failure * repeat echo pending * chronic kidney disease dispo: pt still seems tenuous to discharge today given persistent weakness and wheezing Subjective: continues to wheeze and feels weak. did not sleep well last night due to problems with cpap. no fevers or chills Objective: Vital Signs Temp Pulse Resp BP Pulse Ox 36.7 C 97 20 176/84 H 94 10/06/16 22:13 10/06/16 22:13 10/06/16 22:13 10/06/16 22:13 10/06/16 22:13 Laboratory Results 10/05/16 04:40 10/06/16 05:09 10/06/16 10/07/16 10/08/16 05:59 05:59 05:59 Intake Total 1050 Output Total 250 Balance 800 PT 12.7 SEC (12.0-15.0) 10/03/16 23:15 INR 0.96 (0.83-1.16) 10/03/16 23:15 Laboratory Tests 10/07/16 08:50 Patient Temperature 37.0 pCO2 60 H pO2 167 H Total CO2 32 H ABG pH 7.33 L ABG O2 Saturation 99 H ABG Base Excess 3.8 H - Physical Exam Constitutional: chronically ill appearing, obese Cardiovascular: regular rate and rhythym, no murmur, rub, or gallop Respiratory: no respiratory distress, no rales or rhonchi, clear to auscultation , expiratory wheeze Gastrointestinal: normoactive bowel sounds, soft, non-tender abdomen, no palpable masses Genitourinary: no bladder fullness, no bladder tenderness, no renal bruits Neurologic: AAOx3, sensation intact bilaterally ICD10 Worksheet Patient Problems: Problems Problem Status Onset Chronic Disease Mgmt/Transitional Care Acute Chronic Disease Mgmt/Transitional Care Acute Chronic obstructive lung disease Active Dyspnea Acute Elevated troponin Acute Elevated d-dimer Acute Hypoxemia Acute Elevated brain natriuretic peptide (BNP) level Acute
[2016-10-07] MEDS: guaiFENesin/CODEINE PHOS 10 ML UDCUP PO PRN ×2 (13:55→21:07)
--- NOTE | 2016-10-07 17:01 | PDINTPN ---
Customer Counter Representative Progress Note Assessment/Plan: Assessment/plan: 89 F with known LILIANA admittted 10/03 with SOB and hypoxemia. She had been seen as an outpatient shortly before admission and treated for bronchitis with azithromycin, but continued to deteriorate. She is a life-long non-smoker and had no prior history of asthma, but wheezes on exam led to treatment for obstructive lung disease. She was foiund to have hypercarbic respiratory failure and treated with bipap overnight in addition to nebs, steroids and Levaquin. * Acute on chronic respiratory failure with hypercapnea- the etiology is unclear to me- I dont think she has COPD or asthma, but she does have wheezing today. The trilogy was delivered yesterday as planned but should arrive today. This am ABG consistent with chronic respiratory failure and I hope to betted ventilate her with the Trilogy. Should that fail, we can try Provera. 10/07/16 16:59 Objective: Vital Signs Temp Pulse Resp BP Pulse Ox 36.8 C 87 18 155/70 H 94 10/07/16 15:33 10/07/16 15:33 10/07/16 15:33 10/07/16 15:33 10/07/16 15:33 Laboratory Results 10/05/16 04:40 10/06/16 05:09 10/06/16 10/07/16 10/08/16 05:59 05:59 05:59 Intake Total 1050 Output Total 250 Balance 800 PT 12.7 SEC (12.0-15.0) 10/03/16 23:15 INR 0.96 (0.83-1.16) 10/03/16 23:15 Physical Exam - Physical Exam General Appearance: WD/WN, alert, obese EENT: PERRL/EOMI Neck: supple Respiratory: wheezing, No respiratory distress, No rhonchi Cardiac/Chest: normal peripheral pulses, regular rate, rhythm Abdomen: normal bowel sounds, non-tender, soft, No distended Skin: normal color, warm/dry Lymphatic: no adenopathy Extremities: pedal edema Neuro/Psych: alert, normal mood/affect, oriented x 3 ICD10 Worksheet Patient Problems: Problems Problem Status Onset Chronic Disease Mgmt/Transitional Care Acute Chronic Disease Mgmt/Transitional Care Acute Dyspnea Acute Elevated brain natriuretic peptide (BNP) level Acute Elevated d-dimer Acute Elevated troponin Acute Hypoxemia Acute Chronic obstructive lung disease Active
[2016-10-07] MEDS: SOLIFENACIN SUCCINATE 5 MG TAB PO SCH (21:07)
[2016-10-07] MEDS: ASPIRIN 81 MG CHEWABLE TAB PO SCH (21:07)
[2016-10-08] MEDS: ACETYLCYSTEINE 10% 30 ML VIAL IH SCH ×4 (00:30→16:36)
[2016-10-08] MEDS: IPRATROPIUM/ALBUTEROL 3 ML DEYVIAL IH SCH ×3 (08:15→16:37)
[2016-10-08] MEDS: predniSONE 20 MG TAB PO SCH (09:32)
[2016-10-08] MEDS: SENNOSIDES/DOCUSATE SODIUM TAB PO SCH (09:32)
[2016-10-08] MEDS: PROBENECID 500 MG TAB PO SCH (09:32)
[2016-10-08] MEDS: FERROUS SULFATE 325 MG TAB PO SCH (09:32)
[2016-10-08] MEDS: VERAPAMIL ER 240 MG TAB PO SCH (09:33)
[2016-10-08 11:51] VITALS: RESP 18
--- NOTE | 2016-10-08 11:57 | PDIAF ---
- Diagnosis Diagnosis: acute on chronic respiratory failure Code Status: Do Not Resuscitate - Medication Management Discharge Medications: Medications to Continue on Transfer Aspirin [Aspirin 81mg (*)] 81 mg PO HS 08/18/12 [Last Taken 10/02/16] Verapamil ER [Calan SR/ER 240MG (*)] 240 mg PO DAILY 08/18/12 [Last Taken ] Ferrous Sulfate [Feosol] 325 mg PO DAILY 10/03/16 [Last Taken 10/03/16] Guaifenesin/Codeine Phos [Codeine 10 mg-Guai 300 mg Liq] 5 - 20 ml PO Q6 PRN [Last Taken 10/03/16] Herbals/Supplements -Info Only 1 ea PO DAILY 10/03/16 [Last Taken Unknown] Probenecid [Probenecid 500mg (*)] 500 mg PO DAILY 10/03/16 [Last Taken 10/03/16] Solifenacin Succinate [Vesicare] 10 mg PO HS 10/03/16 [Last Taken 10/02/16] Albuterol [Proventil Neb] 3 ml IH Q2HRS PRN #30 deyvial 10/08/16 [Last Taken Unknown] predniSONE 40 mg PO DAILY #6 tablet 10/08/16 [Last Taken Unknown] Discharge Medications: Refer to the Discharge Home Medication list for PRN reason. - Orders Services needed: Registered Nurse, Physical Therapy Diet Recommendation: no restrictions on diet Diet Texture: Regular Texture Diet - Follow Up Care Current Providers and Referrals: Patient,NotPresent [Unknown] - As per Instructions
--- NOTE | 2016-10-08 12:54 | GDS ---
[f rep st] DISCHARGE SUMMARY DISCHARGE DIAGNOSES: 1. Acute on chronic hypoxemic and hypercarbic respiratory failure, most likely due to obesity hypoventilation syndrome with obstructive sleep apnea. 2. Possible chronic obstructive pulmonary disease versus asthma. 3. Pulmonary hypertension. 4. Morbid obesity. 5. History of diastolic heart failure. 6. Stable chronic kidney disease. CONSULTANTS: Gilmer Vasquez MD, pulmonary Critical Care. HOSPITAL COURSE AND STAY BY PROBLEM: 1. Acute on chronic respiratory failure: She was admitted to the hospital where she was treated empirically for pneumonia and COPD exacerbation with a 6- day course of levofloxacin as well as prednisone. During this hospital stay, she received a new CPAP machine called the trilogy which arrived the day prior to discharge. On day of discharge, the patient states she is feeling better with improved work of breathing. Denies any chest pain or shortness of breath. PHYSICAL EXAM: VITAL SIGNS: On day of discharge, blood pressure 160/78, pulse of 84, respiratory rate 18, O2 saturation 94% on 4 L, temperature afebrile. GENERAL: Obese. No acute distress. HEART: S1, S2. LUNGS: Clear with improving wheeze. ABDOMEN: Soft. EXTREMITIES: No edema. PERTINENT LABS AND STUDIES DONE THIS HOSPITAL STAY: Echocardiogram done 2016: Refer to report. Ejection fraction was 60% to 65%. There is Doppler evidence for diastolic dysfunction. Lower extremity Doppler negative for DVT. DISCHARGE MEDICATIONS: Please refer to discharge medication reconciliation in [facility] for details. DISCHARGE INSTRUCTIONS: The patient will be discharged from the hospital with home care and a nurse and physical therapy. She plans to follow up with Dr. Vasquez with Pulmonology as an outpatient. Greater than 30 minutes were spent on the discharge of this patient /[id number]/MODL MTDD
[2016-10-08] MEDS: HEPARIN 5,000 UNIT/0.5 ML SYR SC SCH ×2 (14:55→16:34)
[2016-10-08 16:32] VITALS: BP 160/70; PULSE 82; TEMP 97.9; O2SAT 98
[2016-10-08] MEDS: guaiFENesin/CODEINE PHOS 10 ML UDCUP PO PRN (16:53)
== END 2016-10-08 18:16 | disposition home health service (06) | DRG 190 ==
LOC: EDUNIT# → OBSVTOIN 16:15 → F3E 18:07 → F2N 22:27 → F3E 10-05 13:42
PROVIDERS: ADMIT Internal Medicine; ATTEND Internal Medicine
DX: J44.1 Chronic obstructive pulmonary disease with (acute) exacerbation (principal); J18.9 Pneumonia, unspecified organism; I50.31 Acute diastolic (congestive) heart failure; J96.21 Acute and chronic respiratory failure with hypoxia; J96.22 Acute and chronic respiratory failure with hypercapnia; E66.2 Morbid (severe) obesity with alveolar hypoventilation; J44.0 Chronic obstructive pulmonary disease with (acute) lower respiratory infection; I27.2 Other secondary pulmonary hypertension; N18.9 Chronic kidney disease, unspecified; Z86.711 Personal history of pulmonary embolism; Z66 Do not resuscitate; E87.5 Hyperkalemia
CPT/HCPCS: 85520-90; 97116-GP; 97161-GP; 97165-GO; 97530-GO; 97530-GP; 97535-GO; G8978-GP-CJ; G8979-GP-CI; G8987-GO-CJ; G8988-GO-CI; J0360; J1644; J1956; J2405

== ENCOUNTER 2016-12-05 20:03 | Observation (INO) | payer OTHER, MEDICARE ==
--- NOTE | 2016-12-05 20:51 | EDPHY ---
HPI/HX/ROS/PE/MDM Narrative: CHIEF COMPLAINT: Hematuria HISTORY OF PRESENT ILLNESS: This patient is an 89 year old female arriving with her family complaining of possible hematuria onset this afternoon. She was visiting [place] with her family, and states she noted blood on her underwear after using the restroom. She feels she was not well hydrated today. She states she has never noticed this before. She has had a hysterectomy, 30-40 years ago. She states her last bowel movement was this morning, and she has been taking Katia-lax for constipation. She reports her last colonoscopy was around 8 years ago. She takes 81mg Aspirin daily, and wears a CPAP at night. She denies fever, chills, abdominal pain, chest pain, dysuria, nausea, vomiting, diarrhea, shortness of breath, headache, lightheadedness. Patient denies any dysuria, abdominal pain, or flank pain. She states she does have a history of having hemorrhoid but has not had painful bowel movements recently. REVIEW OF SYSTEMS: Aside from elements discussed in the HPI, a comprehensive 10-point review of systems was reviewed and is negative. PAST MEDICAL HISTORY: Hysterectomy 30-40 years ago. COPD, PE, pulmonary hypertension, obesity, diastolic heart failure, gout, chronic kidney disease. SOCIAL HISTORY: Lives in [place]. Past medical records reviewed including admission from 10/03/16 for bronchitis. VITAL SIGNS: Reviewed by me GENERAL: Obese female, pleasant, resting comfortably in no respiratory distress. HEENT: Atraumatic. Eyes: No icterus, no injection. Mouth: moist mucous membranes. No erythema or lesions. Neck: supple with no adenopathy. LUNGS: Clear to auscultation bilaterally, no wheezes, rhonchi or rales. CARDIAC: Systolic ejection murmur. Regular rate and rhythm, no rubs, or gallops. ABDOMEN: Soft, obese,nontender, nondistended, bowel sounds normal. no distention or rebound. BACK: No CVA tenderness. RECTAL: Grossly bloody stool on exam with melena and bright red blood. Hemorrhoid is present. No tenderness on examination. EXTREMITIES: No trauma. No edema. Range of motion is normal throughout. NEURO: Alert and oriented, grossly nonfocal. SKIN: Warm and dry, no rash. PSYCHIATRIC: Normal mentation, no agitation. Portions of this note were transcribed by a medical geneticist. I personally performed a history, physical exam, medical decision making, and confirmed accuracy of information the transcribed note. ED Course: 89-year-old female presents with concerns regarding hematuria. However, on examination the patient has evidence of lower GI bleed. I-stat hemoglobin of 36. Remainder of the patient's labs are consistent with her baseline chronic renal insufficiency as well as her baseline anemia. I discussed her course with the hospitalist service. I believe the patient should be admitted to the hospital for observation and monitoring of her GI hemorrhage. Patient is in agreement. MDM: Differential diagnosis of this patient's lower GI bleeding was considered including but not limited to diverticular bleeding, diverticulitis, diverticulosis, ischemic colitis, infectious colitis, tumor, AVM, hemorrhoid and anal fissure. - Data Points Laboratory Results: 12/05/16 12/05/16 12/05/16 21:14 21:14 21:14 WBC RBC Hgb POC Hgb Hct POC Hct MCV MCH MCHC RDW Plt Count MPV Neut % (Auto) Lymph % (Auto) [place] % (Auto) Eos % (Auto) Baso % (Auto) Nucleat RBC Rel Count Absolute Neuts (auto) Absolute Lymphs (auto) Absolute Monos (auto) Absolute Eos (auto) Absolute Basos (auto) Absolute Nucleated RBC Immature Gran % Immature Gran # PT Pending INR Pending POC Sodium Sodium Pending POC Potassium Potassium Pending POC Chloride Chloride Pending Carbon Dioxide Pending Anion Gap Pending POC BUN BUN Pending Creatinine Pending POC Creatinine Estimated GFR Pending Glucose Pending POC Glucose Calcium Pending Troponin I Pending Stool Occult Bld Scrn Patient ABO/Rh Pending Antibody Screen Pending 12/05/16 12/05/16 12/05/16 21:14 21:10 21:00 WBC Pending RBC Pending Hgb Pending POC Hgb 12.2 gm/dL L gm/dL (12.6-16.3) Hct Pending POC Hct 36 % L % (38-47) MCV Pending MCH Pending MCHC Pending RDW Pending Plt Count Pending MPV Pending Neut % (Auto) Pending Lymph % (Auto) Pending [place] % (Auto) Pending Eos % (Auto) Pending Baso % (Auto) Pending Nucleat RBC Rel Count Pending Absolute Neuts (auto) Pending Absolute Lymphs (auto) Pending Absolute Monos (auto) Pending Absolute Eos (auto) Pending Absolute Basos (auto) Pending Absolute Nucleated RBC Pending Immature Gran % Pending Immature Gran # Pending PT INR POC Sodium 142 mEq/L mEq/L (134-144) Sodium POC Potassium 5.3 mEq/L H mEq/L (3.3-5.0) Potassium POC Chloride 107 mEq/L mEq/L (97-110) Chloride Carbon Dioxide Anion Gap POC BUN 37 mg/dL H mg/dL (7-23) BUN Creatinine POC Creatinine 2.4 mg/dL H mg/dL (0.6-1.0) Estimated GFR Glucose POC Glucose 113 mg/dL H mg/dL (70-100) Calcium Troponin I Stool Occult Bld Scrn Pending Patient ABO/Rh Antibody Screen Point of Care Test Results: 12/05/16 21:10 POC Sodium 142 POC Potassium 5.3 H POC Chloride 107 POC BUN 37 H POC Creatinine 2.4 H POC Glucose 113 H General Time Seen by Provider: 12/05/16 20:38 Initial Vital Signs: Initial Vital Signs Temperature (C) 36.8 C 12/05/16 20:09 Heart Rate 78 12/05/16 20:09 Respiratory Rate 18 12/05/16 20:09 Blood Pressure 183/77 H 12/05/16 20:09 O2 Sat (%) 93 12/05/16 20:09 O2 Delivery Mode Nasal Cannula O2 (L/minute) 2 Allergies/Adverse Reactions: MANAN Inhibitors [Manan Inhibitors] Allergy (Intermediate, Verified 12/05/16 22:44) Hives amoxicillin [Amoxicillin] Allergy (Intermediate, Verified 12/05/16 22:44) Hives cortisone [Cortisone] Allergy (Intermediate, Verified 12/05/16 22:44) INCREASED TEMP nitrofurantoin macrocrystalline [From Macrobid] Allergy (Unknown, Verified 12/05 20:12) Hives Sulfa (Sulfonamide Antibiotics) Allergy (Unknown, Verified 12/05/16 20:12) Hives allopurinol [Allopurinol] Allergy (Verified 12/05/16 20:12) Unknown iodine [Iodine] Allergy (Verified 12/05/16 20:12) Unknown Home Medications: Medication Instructions Recorded Aspirin [Aspirin 81mg (*)] 81 mg PO DAILY 08/18/12 Verapamil ER [Calan SR/ER 240MG 240 mg PO BID 08/18/12 (*)] Ferrous Sulfate [Feosol] 325 mg PO DAILY 10/03/16 Herbals/Supplements -Info Only 1 ea PO DAILY 10/03/16 Probenecid [Probenecid 500mg (*)] 500 mg PO DAILY 10/03/16 Solifenacin Succinate [Vesicare] 10 mg PO HS 10/03/16 Departure - Departure Disposition: [facility] Acute Clinical Impression: Lower GI hemorrhage Condition: Fair Report Scribed for: Ivis Tate Report Scribed by: Johanna Garzon Date of Report: 12/05/16 Time of Report: 21:25
[2016-12-05] MEDS ORDERED: NS 500 ML IV ONE (21:08)
[2016-12-05 21:29] LABS: % IMMATURE GRANULYOCYTES 0.5 % (0.0-1.1); ABSOLUTE IMMATURE GRANULOCYTES 0.04 10^3/uL (0.00-0.10); ABSOLUTE NRBC COUNT 0.02 10^3/uL (0-0.01); ADD DIFF? NO; ADD MORPH? NO; ADD SCAN? NO; ATYPICAL LYMPHOCYTE FLAG 20 (0-99); FRAGMENT RBC FLAG 10 (0-99); HEMATOCRIT 32.9 % (38.0-47.0); HEMOGLOBIN 10.2 g/dL (12.6-16.3); LEFT SHIFT FLG 0 (0-99); LIPEMIA HEMOLYSIS FLAG 80 (0-99); MEAN CELL HEMOGLOBIN 32.4 pg (27.9-34.1); MEAN CELL VOLUME 104.4 fL (81.5-99.8); MEAN PLATELET VOLUME 10.3 fL (8.7-11.7); NRBC-AUTO% 0.2 % (0.0-0.2); PLATELET CLUMPS FLAG 0 (0-99); PLATELET COUNT 237 10^3/uL (150-400); RED BLOOD CELL COUNT 3.15 10^6/uL (4.18-5.33); RED CELL DISTRIBUTION WIDTH 17.3 % (11.5-15.2)
[2016-12-05 21:38] LABS: INR 0.9 (0.83-1.16)
[2016-12-05 21:45] LABS: ANION GAP 10 mEq/L (8-16); CALCIUM 8.5 mg/dL (8.5-10.4); CARBON DIOXIDE 24 mEq/l (22-31); CHLORIDE 106 mEq/L (97-110); CREATININE 2.1 mg/dL (0.6-1.0); GLOMERULAR FILTRATION RATE 22; GLUCOSE 107 mg/dL (70-100); POTASSIUM 5.5 mEq/L (3.5-5.2); SODIUM 140 mEq/L (134-144)
--- NOTE | 2016-12-05 21:48 | CPEKG ---
Heart Rate: 75 RR Interval: 800 P-R Interval: 188 QRSD Interval: 104 QT Interval: 416 QTC Interval: 465 P [place]: 47 QRS [place]: 82 T Wave [place]: 67 EKG Severity - ABNORMAL ECG - EKG Impression: SINUS RHYTHM EKG Impression: ANTEROLATERAL INFARCT, OLD Electronically Signed By: Dallas Javier 06-Dec-2016 17:43:40
[2016-12-05 21:56] LABS: TROPONIN I 0.032 ng/mL (0-0.034)
[2016-12-05] MEDS ORDERED: ACETAMINOPHEN 325 MG TAB PO PRN (22:36)
[2016-12-05] MEDS ORDERED: ALBUTEROL 3 ML DEYVIAL IH PRN (22:36)
[2016-12-05] MEDS ORDERED: ONDANSETRON 4 MG/2 ML VIAL IVP PRN (22:36)
[2016-12-05] MEDS ORDERED: ONDANSETRON DISINTEGRATING 4 MG TAB PO PRN (22:36)
[2016-12-05] MEDS ORDERED: NON-FORMULARY NEW DRUG (Solifenacin Succinate [Vesicare] 10 MG) PO SCH (23:06)
[2016-12-05 23:28] LABS: COLOR YELLOW; LEUKOCYTE ESTERASE,URINE 2+ (NEGATIVE); NITRITE,URINE POSITIVE (NEGATIVE)
[2016-12-05] MEDS ORDERED: SOLIFENACIN SUCCINATE 5 MG TAB PO SCH (23:45)
--- NOTE | 2016-12-05 23:45 | PDGENHP ---
History and Physical - Chief Complaint bright red blood per rectum - History of Present Illness Patient is an 89 year old female with chronic respiratory failure, COPD, morbid obesity, LILIANA/OHS, hypertension, CKD (baseline cr 2) and diastolic heart failure who presents to the ED after an episode of bright red blood per rectum. Patient states she was in her usual state of health today, went on a day trip to [place] with her daughter and . Through the day, she denies any abdominal pain, lightheadedness or dizziness. Towards the end of the day, she had a bowel movement and she describes the stool as loose and associated with bright red blood in the toilet bowel and on her underwear. She was unable to quantify the amount of blood and also could not tell if the stool was brown/ melena. She does take daily iron supplementation and her stool is usual dark. BM was painless. She alerted her daughter of the bleeding and daughter drove patient to [facility] for further evaluation. No associate chest pain, palpitations, shortness of breath, dizziness. Patient does report being hospitalized for an episode of diverticulosis about 10 years ago. At that time she had a colonoscopy, has not had a repeat since. She denies any history of upper GI bleeding or PUD. On arrival to the ED, patient was afebrile and hemodynamically stable. Labs revealed stable H/H from previous levels, normal platelets and coags and baseline BUN/cr. She was then admitted for further management. History Information - Allergies/Home Medication List Allergies/Adverse Reactions: MANAN Inhibitors [Manan Inhibitors] Allergy (Intermediate, Verified 12/05/16 22:44) Hives amoxicillin [Amoxicillin] Allergy (Intermediate, Verified 12/05/16 22:44) Hives cortisone [Cortisone] Allergy (Intermediate, Verified 12/05/16 22:44) INCREASED TEMP nitrofurantoin macrocrystalline [From Macrobid] Allergy (Unknown, Verified 12/05 20:12) Hives Sulfa (Sulfonamide Antibiotics) Allergy (Unknown, Verified 12/05/16 20:12) Hives allopurinol [Allopurinol] Allergy (Verified 12/05/16 20:12) Unknown iodine [Iodine] Allergy (Verified 12/05/16 20:12) Unknown Home Medications: Aspirin [Aspirin 81mg (*)] 81 mg PO DAILY 08/18/12 [Last Taken 12/05/16] Verapamil ER [Calan SR/ER 240MG (*)] 240 mg PO BID 08/18/12 [Last Taken 08:00] Ferrous Sulfate [Feosol] 325 mg PO DAILY 10/03/16 [Last Taken 12/05/16] Herbals/Supplements -Info Only 1 ea PO DAILY 10/03/16 [Last Taken Unknown] Probenecid [Probenecid 500mg (*)] 500 mg PO DAILY 10/03/16 [Last Taken 12/05/16] Solifenacin Succinate [Vesicare] 10 mg PO HS 10/03/16 [Last Taken 12/04/16] I have personally reviewed and updated: family history, medical history, social history, surgical history - Past Medical History Additional medical history: chronic respiratory failure, on 3L NC during day, BIPAP at night. LILIANA/obesity hypoventilation syndrome. morbid obesity. Hypertension. diastolic heart failure. pulmonary hypertension. chronic kidney disease with baseline cr 2. h/o diverticulosis - Surgical History Additional surgical history: hysterectomy. appendectomy - Family History Positive for: non-pertinent - Social History Smoking Status: Never smoked Alcohol Use: None Drug Use: None Additional social history: Patient is wheelchair bound when outside her home, uses walker around the house. Lives with her and daughter. No recent falls. Review of Systems ROS: 10pt was reviewed & negative except for what was stated in HPI & below Physical Exam Temp Pulse Resp BP Pulse Ox 36.9 C 78 20 172/82 H 96 12/05/16 23:18 12/05/16 23:18 12/05/16 23:18 12/05/16 23:18 12/05/16 23:18 O2 (L/minute) 2 Constitutional: no apparent distress, appears nourished, not in pain Eyes: PERRL, anicteric sclera, EOMI Ears, Nose, Mouth, Throat: moist mucous membranes, hearing normal, ears appear normal, no oral mucosal ulcers Cardiovascular: regular rate and rhythym, no murmur, rub, or gallop, pulses symmetric bilaterally, No JVD, No edema Peripheral Pulses: 2+: dorsalis-pedis (R), dorsalis-pedis (L) Respiratory: no respiratory distress, no rales or rhonchi, clear to auscultation Gastrointestinal: normoactive bowel sounds, soft, non-tender abdomen, no palpable masses, other (rectal: no obvious external hemorrhoids; dried blood; no active bleeding or bright red blood), No guarding Genitourinary: no bladder fullness, no bladder tenderness Skin: warm, normal color, no rashes or abrasions, no fluctuance, no induration, No mottled Musculoskeletal: full muscle strength, no muscle tenderness, normal joint ROM, no joint effusions Neurologic: AAOx3, sensation intact bilaterally, CN II-XII Intact, No weakness, No numbness Psychiatric: interacting appropriately, not anxious, not encephalopathic, thought process linear Lab Data & Imaging Review 12/05/16 21:14 12/05/16 21:14 WBC 8.60 10^3/uL (3.80-9.50) 12/05/16 21:14 RBC 3.15 10^6/uL (4.18-5.33) L 12/05/16 21:14 Hgb 10.2 g/dL (12.6-16.3) L 12/05/16 21:14 POC Hgb 12.2 gm/dL (12.6-16.3) L 12/05/16 21:10 Hct 32.9 % (38.0-47.0) L 12/05/16 21:14 POC Hct 36 % (38-47) L 12/05/16 21:10 MCV 104.4 fL (81.5-99.8) H 12/05/16 21:14 MCH 32.4 pg (27.9-34.1) 12/05/16 21:14 MCHC 31.0 g/dL (32.4-36.7) L 12/05/16 21:14 RDW 17.3 % (11.5-15.2) H 12/05/16 21:14 Plt Count 237 10^3/uL (150-400) 12/05/16 21:14 MPV 10.3 fL (8.7-11.7) 12/05/16 21:14 Neut % (Auto) 68.9 % (39.3-74.2) 12/05/16 21:14 Lymph % (Auto) 14.8 % (15.0-45.0) L 12/05/16 21:14 [place] % (Auto) 9.9 % (4.5-13.0) 12/05/16 21:14 Eos % (Auto) 4.9 % (0.6-7.6) 12/05/16 21:14 Baso % (Auto) 1.0 % (0.3-1.7) 12/05/16 21:14 Nucleat RBC Rel Count 0.2 % (0.0-0.2) 12/05/16 21:14 Absolute Neuts (auto) 5.93 10^3/uL (1.70-6.50) 12/05/16 21:14 Absolute Lymphs (auto) 1.27 10^3/uL (1.00-3.00) 12/05/16 21:14 Absolute Monos (auto) 0.85 10^3/uL (0.30-0.80) H 12/05/16 21:14 Absolute Eos (auto) 0.42 10^3/uL (0.03-0.40) H 12/05/16 21:14 Absolute Basos (auto) 0.09 10^3/uL (0.02-0.10) 12/05/16 21:14 Absolute Nucleated RBC 0.02 10^3/uL (0-0.01) H 12/05/16 21:14 Immature Gran % 0.5 % (0.0-1.1) 12/05/16 21:14 Immature Gran # 0.04 10^3/uL (0.00-0.10) 12/05/16 21:14 PT 12.0 SEC (12.0-15.0) 12/05/16 21:14 INR 0.90 (0.83-1.16) 12/05/16 21:14 POC Sodium 142 mEq/L (134-144) 12/05/16 21:10 Sodium 140 mEq/L (134-144) 12/05/16 21:14 POC Potassium 5.3 mEq/L (3.3-5.0) H 12/05/16 21:10 Potassium 5.5 mEq/L (3.5-5.2) H 12/05/16 21:14 POC Chloride 107 mEq/L (97-110) 12/05/16 21:10 Chloride 106 mEq/L (97-110) 12/05/16 21:14 Carbon Dioxide 24 mEq/l (22-31) 12/05/16 21:14 Anion Gap 10 mEq/L (8-16) 12/05/16 21:14 POC BUN 37 mg/dL (7-23) H 12/05/16 21:10 BUN 39 mg/dL (7-23) H 12/05/16 21:14 Creatinine 2.1 mg/dL (0.6-1.0) H 12/05/16 21:14 POC Creatinine 2.4 mg/dL (0.6-1.0) H 12/05/16 21:10 Estimated GFR 22 12/05/16 21:14 Glucose 107 mg/dL (70-100) H 12/05/16 21:14 POC Glucose 113 mg/dL (70-100) H 12/05/16 21:10 Calcium 8.5 mg/dL (8.5-10.4) 12/05/16 21:14 Troponin I 0.032 ng/mL (0-0.034) 12/05/16 21:14 Stool Occult Bld Scrn POSITIVE (NEGATIVE) H 12/05/16 21:00 Patient ABO/Rh B POSITIVE 12/05/16 21:14 Antibody Screen NEGATIVE 12/05/16 21:14 Visualized and Interpreted EKG results: Yes EKG Interpretation: Positive for: normal sinsus rhythm (no st/t wave changes) Assessment & Plan Assessment: Patient is an 89 year old female with HTN, dCHF, CKD, chronic respiratory failure, LILIANA/OHS who presents to the ED after one episode of bright red blood per rectum. ED evaluation reveals patient is hemodynamically stable, guiac positive stool with stable H/H. Plan: # hematochezia Patient describes one episode of hematochezia today, with normal BM earlier this AM. Differential includes hemorrhoidal bleed vs diverticular bleed vs upper gi bleed. H/H is stable from previous levels, patient has no symptoms of rapid hemorrhage, so low suspicion for acute UGIB. Will monitor H/H q4h, provide IV pantoprazole, and observe for signs of bleeding. If recurrent episode , may consider GI consultation for colonoscopic evaluation. # chronic respiratory failure Resp status stable on presentation today, will continue O2 supplementatio via nasal cannula, BIPAP at night and provide nebs as needed. # diastolic HF Appears euvolemic on presentation. Will monitor volume status, avoid aggressive IVF hydration. # hypertension BP elevated on presentation. Will continue home meds. # elevated BUN/Cr, hyperkalemia BUN/Cr appear to be at previous baseline levels. Potassium mildly elevated, no EKG changes. Will avoid nephrotoxic agents, monitor BMP/K closely and treat hyperkalemia if uptrending. # dispo: admit to observation status # gen: clear liquid diet DVT ppx: SCDs only due to possible GI bleed DNR, as expressed by patient on admission today
[2016-12-05 23:54] LABS: BACTERIA 3+ /hpf (NONE SEEN); MUCUS TRACE /lpf (NONE-1+); WBC,URINE 25-50 /hpf (0-3)
[2016-12-06] MEDS: VERAPAMIL ER 240 MG TAB PO SCH ×2 (00:09→09:33)
[2016-12-06 04:54] LABS: % IMMATURE GRANULYOCYTES 0.7 % (0.0-1.1); ABSOLUTE IMMATURE GRANULOCYTES 0.05 10^3/uL (0.00-0.10); ADD DIFF? NO; ADD MORPH? NO; ADD SCAN? NO; ATYPICAL LYMPHOCYTE FLAG 20 (0-99); FRAGMENT RBC FLAG 10 (0-99); HEMATOCRIT 30.7 % (38.0-47.0); HEMOGLOBIN 9.3 g/dL (12.6-16.3); LEFT SHIFT FLG 0 (0-99); LIPEMIA HEMOLYSIS FLAG 80 (0-99); MEAN CELL HEMOGLOBIN 31.8 pg (27.9-34.1); MEAN CELL HEMOGLOBIN CONCENTR. 30.3 g/dL (32.4-36.7); MEAN CELL VOLUME 105.1 fL (81.5-99.8); MEAN PLATELET VOLUME 9.6 fL (8.7-11.7); PLATELET CLUMPS FLAG 0 (0-99); PLATELET COUNT 192 10^3/uL (150-400); RED BLOOD CELL COUNT 2.92 10^6/uL (4.18-5.33); RED CELL DISTRIBUTION WIDTH 17.2 % (11.5-15.2)
[2016-12-06 05:04] LABS: APTT 27.7 SEC (23.0-38.0); INR 1.03 (0.83-1.16); PROTIME(PATIENT) 13.4 SEC (12.0-15.0)
[2016-12-06 05:26] LABS: ANION GAP 7 mEq/L (8-16); CALCIUM 8.6 mg/dL (8.5-10.4); CARBON DIOXIDE 23 mEq/l (22-31); CHLORIDE 111 mEq/L (97-110); CREATININE 2.1 mg/dL (0.6-1.0); GLOMERULAR FILTRATION RATE 22; GLUCOSE 88 mg/dL (70-100); MAGNESIUM 2.2 mg/dL (1.6-2.3); POTASSIUM 5.3 mEq/L (3.5-5.2); SODIUM 141 mEq/L (134-144)
[2016-12-06 05:36] LABS: CREATINE KINASE-MB FRACTION 1.13 ng/mL (0-3.19)
[2016-12-06 05:39] LABS: TROPONIN I 0.039 ng/mL (0-0.034)
[2016-12-06] MEDS ORDERED: FERROUS SULFATE 325 MG TAB PO SCH (09:00)
[2016-12-06] MEDS ORDERED: VERAPAMIL ER 240 MG TAB PO SCH (09:00)
[2016-12-06] MEDS ORDERED: PANTOPRAZOLE SODIUM 40 MG in NS 100 ML IV SCH (09:00)
[2016-12-06] MEDS ORDERED: PROBENECID 500 MG TAB PO SCH (09:00)
[2016-12-06] MEDS ORDERED: Herbals/Supplements -Info Only PO SCH (09:00)
--- NOTE | 2016-12-06 09:22 | CPEKG ---
Heart Rate: 67 RR Interval: 896 P-R Interval: 208 QRSD Interval: 104 QT Interval: 456 QTC Interval: 482 P [place]: 55 QRS [place]: 95 T Wave [place]: 82 EKG Severity - BORDERLINE ECG - EKG Impression: SINUS RHYTHM EKG Impression: CONSIDER RIGHT VENTRICULAR HYPERTROPHY Electronically Signed By: Dallas Javier 06-Dec-2016 17:40:11
--- NOTE | 2016-12-06 11:22 | HOSPPROG ---
Hospitalist Progress Note Assessment/Plan: Patient is an 89-year-old female presented to the emergency room after she had 1 episode of bright red blood per rectum. She had a guaiac-positive stool in the emergency room. Today is my 1st encounter with the patient. Chart reviewed. * hematochezia/none further hgb and hct have trended down slightly PPI will get a repeat h/h now she has a long hx of anemia and is followed by the environmental services coordinator *Macrocytic anemia no alcohol use says she gets injections monthly/ not sure of the medication * chronic respiratory failure at her baseline * slight elevation in one troponin likely demand ischemia no cp *Pyuria has no signs of symptoms * diastolic HF euvolemic *hypertension 153/75 *constipation reviewed meds with her to take *morbid obesity/BMI of 39.9 *CKD with baseline creat around 2 *LILIANA *Mild hyperkalemia recheck now/ has hx of this # dispo: pending/ will get a repeat h/h and k level/ if stable; will dc home with close f/u with PCP Subjective: Ewa is feeling fine/ would like to go home. Objective: Vital Signs Temp Pulse Resp BP Pulse Ox 36.6 C 89 18 153/75 H 97 12/06/16 08:00 12/06/16 08:00 12/06/16 08:00 12/06/16 08:00 12/06/16 08:00 Laboratory Results 12/06/16 04:47 12/06/16 04:47 12/05/16 12/06/16 12/07/16 05:59 05:59 05:59 Intake Total 200 Output Total 650 400 Balance -450 -400 PT 13.4 SEC (12.0-15.0) 12/06/16 04:47 INR 1.03 (0.83-1.16) 12/06/16 04:47 - Physical Exam Constitutional: no apparent distress, chronically ill appearing, obese, No not in pain Eyes: PERRL Ears, Nose, Mouth, Throat: hearing normal Cardiovascular: regular rate and rhythym, systolic murmur Respiratory: no respiratory distress, reduced air movement Gastrointestinal: normoactive bowel sounds Skin: warm Musculoskeletal: generalized weakness Neurologic: AAOx3 Psychiatric: interacting appropriately, not anxious ICD10 Worksheet Patient Problems: Problems Problem Status Onset Lower GI hemorrhage Acute Chronic obstructive lung disease Active Chronic Disease Mgmt/Transitional Care Acute Chronic Disease Mgmt/Transitional Care Acute Dyspnea Acute Elevated brain natriuretic peptide (BNP) level Acute Elevated d-dimer Acute Elevated troponin Acute Hypoxemia Acute
[2016-12-06 11:41] VITALS: BP 192/77; PULSE 74; RESP 17; TEMP 98.3; O2SAT 95
[2016-12-06 13:25] LABS: HEMATOCRIT 30.6 % (38.0-47.0); HEMOGLOBIN 9.3 g/dL (12.6-16.3)
[2016-12-06 13:35] LABS: POTASSIUM 5.2 mEq/L (3.5-5.2)
[2016-12-06] MEDS ORDERED: NON-FORMULARY NEW DRUG (Solifenacin Succinate [Vesicare] 10 MG) PO SCH (21:00)
--- NOTE | 2016-12-06 22:04 | GDS ---
[f rep st] DISCHARGE SUMMARY DISCHARGE DIAGNOSES: 1. Hematochezia. 2. Macrocytic anemia. 3. Chronic respiratory failure. 4. Slight elevation in 1 troponin. 5. Pyuria. 6. Diastolic heart failure. 7. Hypertension. 8. Constipation. 9. Morbid obesity with a BMI of 39.9. 10. Chronic kidney disease with a baseline creatinine around 2. 11. Obstructive sleep apnea. 12. Mild hyperkalemia. BRIEF HISTORY: This patient is a very sweet 89-year-old woman who has chronic respiratory failure, COPD, chronic anemia, who presented to the ER after an episode of bright red blood per rectum. She went on a day trip to [place] with her daughter and . Towards the end of the day, she had a bowel movement, and she describes the stools as loose and associated bright red blood in the toilet and on her underwear. She was unable to quantify. She takes iron supplementation. Her stool is usually dark. She was admitted, started on a PPI. Her labs were rechecked today. She had a slight trend down, but they have remained stable. Per the patient, she has a long history of anemia and gets injections with the supervisor soldering monthly. HOSPITAL COURSE: 1. Hematochezia. None further. She is followed in the outpatient setting by the supervisor soldering. I have recommend that she get repeat counts done at the end of this week. 2. Macrocytic anemia. No alcohol use. 3. Chronic respiratory failure at her baseline. 4. Elevation of troponin/demand ischemia. She has had no episodes of chest pain. 5. Pyuria. She has no signs or symptoms. 6. Diastolic heart failure. She appears euvolemic. 7. Hypertension. Blood pressure is 152/75. 8. Constipation. I reviewed medications for her to take to help with this. 9. Morbid obesity, and this is impacting all the above. 10. Chronic kidney disease. She has a baseline creatinine of around 2; it is 2.1. 11. Obstructive sleep apnea. To continue wearing oxygen. 12. Mild hyperkalemia, resolved after hydrating. PENDING LABS AND TESTS: None. CONDITION AT DISCHARGE: Stable. Blood pressure is 152/75, heart rate is 89, respiratory rate is 18, O2 sats on 3 L are 97%, temperature is 36.6 Celsius. MEDICATIONS AT DISCHARGE: Please see the EMR. DISCHARGE INSTRUCTIONS: 1. To hold her aspirin for the next 5 days, and if she has any further hematochezia, to return to the ER. 2. If she develops chest pain, fevers, chills, return to the ER. 3. To get repeat labs done this week. /[id number]/MODL MTDD
== END 2016-12-06 16:05 | disposition home or self-care (01) ==
LOC: INTOOBSV 22:36 → OBSVTOIN 22:36 → F3N 22:48
PROVIDERS: ADMIT Internal Medicine; ATTEND Internal Medicine
DX: K62.5 Hemorrhage of anus and rectum (principal); E87.5 Hyperkalemia; D53.9 Nutritional anemia, unspecified; J44.9 Chronic obstructive pulmonary disease, unspecified; E86.9 Volume depletion, unspecified; J96.10 Chronic respiratory failure, unspecified whether with hypoxia or hypercapnia; I27.2 Other secondary pulmonary hypertension; N18.9 Chronic kidney disease, unspecified; E66.01 Morbid (severe) obesity due to excess calories; Z68.39 Body mass index [BMI] 39.0-39.9, adult; G47.33 Obstructive sleep apnea (adult) (pediatric); K59.00 Constipation, unspecified; I50.30 Unspecified diastolic (congestive) heart failure; Z86.711 Personal history of pulmonary embolism; Z79.82 Long term (current) use of aspirin
CPT/HCPCS: 82947-QW